=== PATIENT | male | born 1950 | race African-American/Black ===

== ENCOUNTER 2020-11-30 14:02 | Emergency (ER) | payer OTHER ==
[2020-11-30 15:19] VITALS: BMI 36.3
[2020-11-30] MEDS ORDERED: CASIRIVIMAB/IMDEVIMAB 10 ML in SODIUM CHLORIDE 100 ML IVPB ONE (15:20)
[2020-11-30 16:30] LABS: BASO % 1.3 % (0-2.0); EOS % 1.9 % (0-4.5); HEMATOCRIT 39.8 % (35.4-49); HEMOGLOBIN 14.1 GM/dL (11.7-16.9); LYMPH % 56.9 % (8-40); MCH 30.5 pg (25.7-33.7); MCHC 35.5 g/dl (32.0-35.9); MEAN CELL VOLUME 85.8 fl (80-96); MEAN PLT VOLUME 7.1 fl (7.5-11.1); MONO % 7.8 % (3.8-10.2); NEUT % 32.1 % (42.8-82.8); PLATELET COUNT 272 10^3/uL (134-434); RBC 4.64 M/mm3 (4.00-5.60); RDW 13.2 % (11.9-15.9); WHITE BLOOD COUNT 4.1 K/mm3 (4.0-10.0)
[2020-11-30 16:50] LABS: CALCIUM 8.9 mg/dL (8.5-10.1)
[2020-11-30 16:51] LABS: BLOOD UREA NITROGEN 15.6 mg/dL (7-18)
[2020-11-30 16:54] LABS: CREATININE 1.2 mg/dL (0.55-1.3)
[2020-11-30 18:09] VITALS: BP 128/75; PULSE 69; TEMP 98.4
== END 2020-11-30 18:52 | disposition home or self-care (01) ==
LOC: JER 14:02
DX: U07.1 COVID-19 (principal)
CPT/HCPCS: 36415; 80048; 85025; 99284-25; Q0240